=== PATIENT | male | born 1965 | race Caucasian/White ===

== ENCOUNTER 2020-06-13 05:20 | Observation (INO) | payer BC ==
[~2020-06-13] VITALS: Ht 180.3 cm; Wt 90.0 kg
[~2020-06-13 05:20] MED LIST: ASPIRIN LOW DOS81 M2 PO; ATENOLOL50 MG PO; ATORVASTATIN CA40 MG PO; BRILINTA90 MG PO; CIPROFLOXACN500 MG PO; COQ-10200 MG; FISH OIL1000 MG PO; KEFLEX500 MG OR; LISINOPRIL10 MG PO; MEDDOSEPAK OR; NO HOME MEDS; TESSALON200 MG PO
[2020-06-13 06:06] LABS: HEMATOCRIT 32.6 % (39.0-50.0); IMMATURE GRANULOCYTES 1.6 % (0.0-5.0); MEAN CELL VOLUME 88.8 fL CALC (80.0-100.0); MEAN CORPUSCULAR HGB 29.2 pG CALC (26.0-32.0); MEAN CORPUSCULAR HGB CONC 32.8 g/dL CAL (32.0-36.0); NEUT# 11.99 thou/uL (1.82-7.42); RED BLOOD COUNT 3.67 mill/uL (4.70-6.10); RED CELL DISTRI WIDTH 13.3 % (11.5-15.5)
[2020-06-13 06:07] LABS: HEMOGLOBIN 10.7 g/dl (14.0-18.0)
[2020-06-13 06:30] LABS: ALBUMIN 3.6 g/dL (3.2-5.0); POTASSIUM 4.5 mmol/l (3.5-5.1); TOTAL PROTEIN 6.2 g/dL (6.3-8.2)
[2020-06-13 06:34] LABS: BILIRUBIN, TOTAL 0.9 mg/dL (0.0-1.4); CREATININE 2.7 mg/dL (0.7-1.3)
[2020-06-13 08:20] LABS: URINE BLOOD DIPSTICK TRACE-LYSED (NEGATIVE); URINE COLOR YELLOW; URINE GLUCOSE - DIPSTICK NEGATIVE (NEGATIVE); URINE KETONE NEGATIVE (NEGATIVE); URINE NITRITE - DIPSTICK NEGATIVE (Negative); URINE PROTEIN - DIPSTICK 100 mg/dL (NEG-TRACE); URINE UROBILINOGEN - DIPSTICK 0.2 E.U./dL (0.2)
[2020-06-13 08:28] LABS: URINE BILIRUBIN - DIPSTICK NEGATIVE (NEGATIVE); URINE LEUK ESTERASE SMALL (NEGATIVE)
[2020-06-13 08:31] LABS: URINE BACTERIA MANY hpf; URINE WBC >100 WBC/hpf (0-5)
[2020-06-13 08:33] LABS: URINE COARSE GRANULAR CAST MODERATE lpf
[2020-06-13 08:54] LABS: CREATININE 2.5 mg/dL (0.7-1.3); POTASSIUM 4.5 mmol/l (3.5-5.1)
[2020-06-13 11:25] VITALS: BP 145/72
[2020-06-13 14:48] VITALS: BP 152/82
[2020-06-13 19:30] VITALS: BP 106/62
[2020-06-14] VITALS: BP 154/84
[2020-06-14 04:00] VITALS: BP 115/73
[2020-06-14 05:50] LABS: HEMATOCRIT 27.7 % (39.0-50.0); HEMOGLOBIN 8.8 g/dl (14.0-18.0); MEAN CORPUSCULAR HGB 29.5 pG CALC (26.0-32.0); MEAN CORPUSCULAR HGB CONC 31.8 g/dL CAL (32.0-36.0); RED BLOOD COUNT 2.98 mill/uL (4.70-6.10); RED CELL DISTRI WIDTH 13.8 % (11.5-15.5)
[2020-06-14 06:18] LABS: CREATININE 2.2 mg/dL (0.7-1.3); MAGNESIUM 1.8 mg/dL (1.6-2.3); POTASSIUM 4.6 mmol/l (3.5-5.1)
[2020-06-14 08:01] VITALS: BP 136/83
[2020-06-14] MEDS ORDERED: FENOFIBRATE145 MG PO (10:01)
[2020-06-14 11:08] VITALS: BP 125/76
[2020-06-14 15:01] VITALS: BP 148/85
[2020-06-14 19:30] VITALS: BP 158/86
[2020-06-15 04:39] VITALS: BP 159/87
[2020-06-15 05:17] LABS: HEMATOCRIT 27.3 % (39.0-50.0); HEMOGLOBIN 8.6 g/dl (14.0-18.0); IMMATURE GRANULOCYTES 1.4 % (0.0-5.0); MEAN CELL VOLUME 92.9 fL CALC (80.0-100.0); MEAN CORPUSCULAR HGB 29.3 pG CALC (26.0-32.0); MEAN CORPUSCULAR HGB CONC 31.5 g/dL CAL (32.0-36.0); NEUT# 2.75 thou/uL (1.82-7.42); RED BLOOD COUNT 2.94 mill/uL (4.70-6.10); RED CELL DISTRI WIDTH 13.5 % (11.5-15.5)
[2020-06-15 05:48] LABS: ALKALINE PHOSPHATASE 66 u/l (38-126); ANION GAP 11 (6-22 (CALC)); BUN 31 mg/dL (9-20); BUN/CREATININE RATIO 22 (12-20 (CALC)); CARBON DIOXIDE 23 mmol/l (22-30); CHLORIDE 105 mmol/l (95-108); CREATININE 1.4 mg/dL (0.7-1.3); GFR 53 ML/MIN (>=60 (CALC)); GFR FOR AFR.AMER. > 60 ML/MIN (>=60 (CALC)); POTASSIUM 4.1 mmol/l (3.5-5.1); SGOT/AST 66 u/l (17-59); SODIUM 135 mmol/l (137-146); TOTAL PROTEIN 5.1 g/dL (6.3-8.2)
[2020-06-15 05:50] LABS: ALBUMIN 2.7 g/dL (3.2-5.0); BILIRUBIN, TOTAL 0.4 mg/dL (0.0-1.4)
[2020-06-15 08:11] VITALS: BP 154/78
[2020-06-15 10:15] VITALS: BP 163/91
[2020-06-15] MEDS ORDERED: KEFLEX500 MG PO (10:32)
[2020-06-15] MEDS ORDERED: BUPROPION HCL150 M1 PO (10:37)
[2020-06-15] MEDS ORDERED: LIBRIUM25 M1 PO (11:44)
== END 2020-06-15 12:11 | disposition home or self-care (01) | DRG 690 ==
LOC: ED 05:20 → ED-I 06:01 → ED 06:01 → ED-I 09:00 → ED 09:15 → MS2 09:16
PROVIDERS: Emergency Medicine; Nurse Practitioner; ADMIT Internal Medicine; ATTEND Internal Medicine
DX: N39.0 Urinary tract infection, site not specified (principal); N17.9 Acute kidney failure, unspecified; E86.0 Dehydration; I95.9 Hypotension, unspecified; I10 Essential (primary) hypertension; I25.10 Atherosclerotic heart disease of native coronary artery without angina pectoris; E78.5 Hyperlipidemia, unspecified; F32.9 Major depressive disorder, single episode, unspecified; F10.10 Alcohol abuse, uncomplicated; I25.2 Old myocardial infarction; F17.220 Nicotine dependence, chewing tobacco, uncomplicated; B96.20 Unspecified Escherichia coli [E. coli] as the cause of diseases classified elsewhere; Z95.5 Presence of coronary angioplasty implant and graft; Z20.822 Contact with and (suspected) exposure to COVID-19
CPT/HCPCS: G0378

== ENCOUNTER 2020-07-14 | Emergency (ER) | payer BC ==
[~2020-07-14] MED LIST changes: +BUPROPION HCL150 M1 PO; +FENOFIBRATE145 MG PO; +KEFLEX500 MG PO; +LIBRIUM25 M1 PO
[2020-07-14] MEDS ORDERED: LISINOPRIL20 MG PO (12:16)
[2020-07-14 12:41] LABS: HEMATOCRIT 31.9 % (39.0-50.0); HEMOGLOBIN 10.1 g/dl (14.0-18.0); IMMATURE GRANULOCYTES 0.8 % (0.0-5.0); MEAN CELL VOLUME 89.9 fL CALC (80.0-100.0); MEAN CORPUSCULAR HGB 28.5 pG CALC (26.0-32.0); MEAN CORPUSCULAR HGB CONC 31.7 g/dL CAL (32.0-36.0); NEUT# 8.96 thou/uL (1.82-7.42); RED BLOOD COUNT 3.55 mill/uL (4.70-6.10); RED CELL DISTRI WIDTH 14.1 % (11.5-15.5)
[2020-07-14 12:48] LABS: ALKALINE PHOSPHATASE 41 u/l (38-126); BUN 14 mg/dL (9-20); BUN/CREATININE RATIO 13 (12-20 (CALC)); CHLORIDE 100 mmol/l (95-108); CREATININE 1.1 mg/dL (0.7-1.3); GFR > 60 ML/MIN (>=60 (CALC)); GFR FOR AFR.AMER. > 60 ML/MIN (>=60 (CALC)); POTASSIUM 4.2 mmol/l (3.5-5.1); SGOT/AST 25 u/l (17-59); SODIUM 138 mmol/l (137-146)
[2020-07-14 13:03] LABS: ALBUMIN 4.1 g/dL (3.2-5.0); ANION GAP 11 (6-22 (CALC)); BILIRUBIN, TOTAL 0.7 mg/dL (0.0-1.4); CARBON DIOXIDE 31 mmol/l (22-30); TOTAL PROTEIN 6.6 g/dL (6.3-8.2)
[2020-07-14 14:36] LABS: URINE BILIRUBIN - DIPSTICK NEGATIVE (NEGATIVE); URINE BLOOD DIPSTICK LARGE (NEGATIVE); URINE COLOR YELLOW; URINE GLUCOSE - DIPSTICK NEGATIVE (NEGATIVE); URINE KETONE NEGATIVE (NEGATIVE); URINE PROTEIN - DIPSTICK NEGATIVE (NEG-TRACE); URINE SPECIFIC GRAVITY <=1.005; URINE UROBILINOGEN - DIPSTICK 0.2 E.U./dL (0.2)
[2020-07-14 14:37] LABS: URINE LEUK ESTERASE SMALL (NEGATIVE); URINE NITRITE - DIPSTICK NEGATIVE (Negative)
[2020-07-14 14:47] LABS: URINE RBC 25-50 RBC/hpf (0-5)
[2020-07-14] MEDS ORDERED: DOXYCYC MONO100 M2 PO (15:22)
[2020-07-14] MEDS ORDERED: NAPROXEN375 MG PO (15:23)
--- NOTE | 2020-07-16 14:13 | NUR ---
urine cx shows e coli snesitive to bactrim. pt was d/c on doxy, not tested for gram negative rods per ma in lab. results called to dr meza, new rx for bactrim ds po bid x7 called in to [facility]. pt aware of rx change
== END 2020-07-14 16:00 | disposition home or self-care (01) | DRG 690 ==
DX: N39.0 Urinary tract infection, site not specified (principal); I10 Essential (primary) hypertension; I25.2 Old myocardial infarction; E78.00 Pure hypercholesterolemia, unspecified; F17.200 Nicotine dependence, unspecified, uncomplicated; B96.20 Unspecified Escherichia coli [E. coli] as the cause of diseases classified elsewhere
CPT/HCPCS: Q9967

== ENCOUNTER 2020-08-12 05:50 | Emergency (ER) | payer BC ==
[~2020-08-12 05:50] MED LIST changes: +DOXYCYC MONO100 M2 PO; +LISINOPRIL20 MG PO; +NAPROXEN375 MG PO
[2020-08-12 06:38] LABS: HEMATOCRIT 35.4 % (39.0-50.0); HEMOGLOBIN 11.2 g/dl (14.0-18.0); IMMATURE GRANULOCYTES 0.4 % (0.0-5.0); MEAN CELL VOLUME 90.3 fL CALC (80.0-100.0); MEAN CORPUSCULAR HGB 28.6 pG CALC (26.0-32.0); MEAN CORPUSCULAR HGB CONC 31.6 g/dL CAL (32.0-36.0); NEUT# 6.92 thou/uL (1.82-7.42); RED BLOOD COUNT 3.92 mill/uL (4.70-6.10); RED CELL DISTRI WIDTH 14.8 % (11.5-15.5)
[2020-08-12 06:56] LABS: ALBUMIN 4.1 g/dL (3.2-5.0); ALKALINE PHOSPHATASE 32 u/l (38-126); BILIRUBIN, TOTAL 0.8 mg/dL (0.0-1.4); BUN 21 mg/dL (9-20); BUN/CREATININE RATIO 15 (12-20 (CALC)); CHLORIDE 105 mmol/l (95-108); CREATININE 1.4 mg/dL (0.7-1.3); GFR 53 ML/MIN (>=60 (CALC)); GFR FOR AFR.AMER. > 60 ML/MIN (>=60 (CALC)); POTASSIUM 4.5 mmol/l (3.5-5.1); SGOT/AST 24 u/l (17-59); SODIUM 138 mmol/l (137-146); TOTAL PROTEIN 6.6 g/dL (6.3-8.2)
[2020-08-12 06:59] LABS: ANION GAP 14 (6-22 (CALC)); CARBON DIOXIDE 24 mmol/l (22-30)
[2020-08-12 07:08] LABS: MYOGLOBIN 80 ng/mL (0 - 121)
[2020-08-12] MEDS ORDERED: TRICOR145 MG PO (07:14)
[2020-08-12] MEDS ORDERED: LIPITOR20 M1 PO (07:14)
[2020-08-12] MEDS ORDERED: NORVASC5 M1 PO (07:15)
[2020-08-12] MEDS ORDERED: MELATONIN3 M1 PO (07:15)
[2020-08-12] MEDS ORDERED: WELLBUTRIN XL150 MG PO (07:16)
[2020-08-12 09:52] LABS: URINE BILIRUBIN - DIPSTICK NEGATIVE (NEGATIVE); URINE BLOOD DIPSTICK NEGATIVE (NEGATIVE); URINE COLOR YELLOW; URINE GLUCOSE - DIPSTICK NEGATIVE (NEGATIVE); URINE KETONE TRACE mg/dL (NEGATIVE); URINE LEUK ESTERASE NEGATIVE (NEGATIVE); URINE PROTEIN - DIPSTICK NEGATIVE (NEG-TRACE); URINE SPECIFIC GRAVITY 1.025; URINE UROBILINOGEN - DIPSTICK 0.2 E.U./dL (0.2)
[2020-08-12 09:57] LABS: URINE NITRITE - DIPSTICK NEGATIVE (Negative)
[2020-08-12 11:39] VITALS: BP 97/55
== END 2020-08-12 11:39 | disposition short-term general hospital (02) | DRG 312 ==
LOC: ED 05:50
PROVIDERS: Emergency Medicine
DX: R55 Syncope and collapse (principal); R56.9 Unspecified convulsions; I25.10 Atherosclerotic heart disease of native coronary artery without angina pectoris; I10 Essential (primary) hypertension; F41.9 Anxiety disorder, unspecified; F32.9 Major depressive disorder, single episode, unspecified; E78.00 Pure hypercholesterolemia, unspecified; F17.200 Nicotine dependence, unspecified, uncomplicated; I25.2 Old myocardial infarction; Z95.5 Presence of coronary angioplasty implant and graft; Z20.822 Contact with and (suspected) exposure to COVID-19